=== PATIENT | male | born 1975 | race Caucasian/White ===

== ENCOUNTER 2016-12-26 10:34 | Emergency (ER) | payer MEDICAID ==
[2016-12-26 10:42] VITALS: RESP 18; O2SAT 94
--- NOTE | 2016-12-26 11:32 | EDPHY ---
H & P Stated Complaint: sob/burning with breathing/?fevers body aches/wants psych eval Time Seen by Provider: 12/26/16 11:00 HPI/ROS: CHIEF COMPLAINT: Fatigue, myalgias, "feeling hopeless" HISTORY OF PRESENT ILLNESS: 41-year-old male currently undergoing ongoing medical gender transition, medical history significant for PTSD, drove to the ER complaining of 4 days of diffuse myalgias, fatigue, dyspnea, left-sided chest pain. He also awoke this morning "feeling hopeless", however specifically no suicidal or homicidal ideation. He denies: Syncope, near syncope, back pain , nausea, vomiting PRIMARY CARE PROVIDER: Dr. Nikki Garcia REVIEW OF SYSTEMS: A ten point review of systems was performed and is negative with the exception of the items mentioned in the HPI PAST MEDICAL & SURGICAL HISTORY: Appendectomy. Currently undergoing hormonal gender transition. Hiatal hernia. Migraine. Chronic back pain. Mesenteric adenoma. Brain lesion. SOCIAL HISTORY: Daily smoker. No drug use. No alcohol. FAMILY HISTORY: No family history of premature coronary artery disease PHYSICAL EXAM (Prior to examination, patient consented to physical exam, hands were washed and my usual and customary physical exam procedures followed) 1) GENERAL: Well-developed, well-nourished, alert and oriented. Appears to be in no acute distress. 2) HEAD: Normocephalic, atraumatic 3) HEENT: Pupils equal, round, reactive to light bilaterally. Sclera anicteric. 4) NECK: Full range of motion, no meningeal signs. Full range of motion. 5) LUNGS: Clear auscultation bilaterally, no wheezes, no rhonchi, no retractions. 6) HEART: Regular rate and rhythm, no murmur, no heave, no gallop. 7) ABDOMEN: No guarding, no rebound, no focal tenderness, negative McBurney's, negative Melvin's, negative Rovsing's, negative peritoneal sign, 8) MUSCULOSKELETAL: Right forearm lidocaine patch in place. Compartments are soft. He is neurovascular intact distally with normal color normal temperature brisk pulses and capillary refill and no pain with palpation. Moving all extremities, no focal areas of tenderness, no obvious trauma. No peripheral edema or discoloration. 9) BACK: No CVA tenderness, no midline vertebral tenderness, no fluctuance, no step-off, no obvious trauma, no visual or palpable abnormality. 10) SKIN: No rash, no petechiae. 11) Psychiatric: Patient is oriented X 3, there is no agitation. He does appear intermittently tearful will cry intermittently. DIFFERENTIAL DIAGNOSIS: In no particular order, including but not limited to myocardial ischemia, pulmonary embolus, chest wall pain, pleural inflammation and pulmonary infectious causes. - Personal History Current Tetanus/Diphtheria Vaccine: Yes Tetanus Vaccine Date: 2007 - Medical/Surgical History Hx Asthma: No Hx Chronic Respiratory Disease: No Hx Diabetes: No Hx Cardiac Disease: No Hx Renal Disease: No Hx Cirrhosis: No Hx Alcoholism: No Hx HIV/AIDS: No Hx Splenectomy or Spleen Trauma: No Other PMH: appy, hiatal hernia, Migraines, chronic back pain, brain lesion Rt lobe, mesenteric adenoma - Social History Smoking Status: Heavy smoker Constitutional: Initial Vital Signs Temperature (C) 36.6 C 12/26/16 10:40 Heart Rate 93 12/26/16 10:40 Respiratory Rate 18 12/26/16 10:40 Blood Pressure 138/109 H 12/26/16 10:40 O2 Sat (%) 94 12/26/16 10:40 O2 Delivery Mode Room Air Allergies/Adverse Reactions: Gadolinium-Containing Contrast Medi Allergy (Intermediate, Verified 12/26/16 10: 39) n/v,syncope amitriptyline Allergy (Verified 12/26/16 10:39) Other-Enter Comments artichoke [Artichoke] Allergy (Verified 12/26/16 10:39) asparagus Allergy (Verified 12/26/16 10:39) Home Medications: Medication Instructions Recorded Estradiol 12/26/16 Spironolactone 12/26/16 Medical Decision Making - Diagnostics Imaging Results: Imaging Impressions Chest X-Ray 12/26/16 11:28 Impression: No acute findings in the chest. Images reviewed by myself ED Course/Re-evaluation: 1:17 p.m.: This patient has been re-evaluated with serial exams. At this time he is sleeping, easily woken. Discussed his laboratory studies. He has multiple complaints and we discussed his diagnostic studies. He is complaining of diffuse myalgias. He has a negative influenza test and negative CK. Doubt rhabdomyolysis. Doubt influenza . He also complained of dyspnea and intermittent chest pain for the past 4 days with a negative D-dimer, negative troponin, normal EKG, normal chest x-ray. I think that pulmonary embolus, AK, aortic dissection, pneumothorax, less than likely in this patient. He also has no evidence of pulmonary infectious etiology on chest x-ray is maintain normal saturations, not tachycardic, not tachypneic. He was also concerned about possible meningitis. He has excellent range of motion, negative meningismus. I think that meningitis is less than likely in this patient. He also stated that he was "feeling hopeless" and specifically inquired initially and on repeat examination when he was experiencing suicidal or homicidal ideation and he adamantly denies this. I do not think that he meets criteria for an M1 hold. I offered to send [facility] which he is agreeable with. He has a vehicle and he feels comfortable driving there. At this time I do not think that hospitalization or further diagnostic studies indicated. He would like to be discharged. - Data Points Laboratory Results: Laboratory Results 12/26/16 11:30 12/26/16 11:30 12/26/16 12/26/16 12/26/16 11:30 11:30 11:30 WBC RBC Hgb Hct MCV MCH MCHC RDW Plt Count MPV Neut % (Auto) Lymph % (Auto) Kendall % (Auto) Eos % (Auto) Baso % (Auto) Nucleat RBC Rel Count Absolute Neuts (auto) Absolute Lymphs (auto) Absolute Monos (auto) Absolute Eos (auto) Absolute Basos (auto) Absolute Nucleated RBC Immature Gran % Immature Gran # D-Dimer Sodium Potassium Chloride Carbon Dioxide Anion Gap BUN Creatinine Estimated GFR Glucose Calcium Creatine Kinase Troponin I Urine Color YELLOW Urine Appearance CLEAR Urine pH 5.0 (5.0-7.5) Ur Specific Roberts 1.005 (1.002-1.030) Urine Protein NEGATIVE (NEGATIVE) Urine Ketones NEGATIVE (NEGATIVE) Urine Blood 1+ H (NEGATIVE) Urine Nitrate NEGATIVE (NEGATIVE) Urine Bilirubin NEGATIVE (NEGATIVE) Urine Urobilinogen NEGATIVE EU EU (0.2-1.0) Ur Leukocyte Esterase NEGATIVE (NEGATIVE) Urine RBC 1-3 /hpf /hpf (0-3) Urine WBC 1-3 /hpf /hpf (0-3) Ur Epithelial Cells TRACE /lpf /lpf (NONE-1+) Urine Mucus TRACE /lpf /lpf (NONE-1+) Urine Glucose NEGATIVE (NEGATIVE) Monoscreen NEGATIVE (NEGATIVE) Influenza Typ A,B (DFA) NEGATIVE FOR FLU (NEGATIVE) 12/26/16 12/26/16 12/26/16 11:30 11:30 11:30 WBC 4.68 10^3/uL 10^3/uL (3.80-9.50) RBC 5.20 10^6/uL 10^6/uL (4.40-6.38) Hgb 15.8 g/dL g/dL (13.7-17.5) Hct 44.7 % % (40.0-51.0) MCV 86.0 fL fL (81.5-99.8) MCH 30.4 pg pg (27.9-34.1) MCHC 35.3 g/dL g/dL (32.4-36.7) RDW 12.5 % % (11.5-15.2) Plt Count 181 10^3/uL 10^3/uL (150-400) MPV 10.8 fL fL (8.7-11.7) Neut % (Auto) 63.5 % % (39.3-74.2) Lymph % (Auto) 20.5 % % (15.0-45.0) Kendall % (Auto) 15.0 % H % (4.5-13.0) Eos % (Auto) 0.2 % L % (0.6-7.6) Baso % (Auto) 0.4 % % (0.3-1.7) Nucleat RBC Rel Count 0.0 % % (0.0-0.2) Absolute Neuts (auto) 2.97 10^3/uL 10^3/uL (1.70-6.50) Absolute Lymphs (auto) 0.96 10^3/uL L 10^3/uL (1.00-3.00) Absolute Monos (auto) 0.70 10^3/uL 10^3/uL (0.30-0.80) Absolute Eos (auto) 0.01 10^3/uL L 10^3/uL (0.03-0.40) Absolute Basos (auto) 0.02 10^3/uL 10^3/uL (0.02-0.10) Absolute Nucleated RBC 0.00 10^3/uL 10^3/uL (0-0.01) Immature Gran % 0.4 % % (0.0-1.1) Immature Gran # 0.02 10^3/uL 10^3/uL (0.00-0.10) D-Dimer 0.38 ug/mLFEU ug/mLFEU (0.00-0.50) Sodium 135 mEq/L mEq/L (134-144) Potassium 4.5 mEq/L mEq/L (3.5-5.2) Chloride 102 mEq/L mEq/L (97-110) Carbon Dioxide 25 mEq/l mEq/l (22-31) Anion Gap 8 mEq/L mEq/L (8-16) BUN 15 mg/dL mg/dL (7-23) Creatinine 0.9 mg/dL mg/dL (0.7-1.3) Estimated GFR > 60 Glucose 94 mg/dL mg/dL (70-100) Calcium 9.0 mg/dL mg/dL (8.5-10.4) Creatine Kinase 91 IU/L IU/L (0-224) Troponin I < 0.012 ng/mL ng/mL (0-0.034) Urine Color Urine Appearance Urine pH Ur Specific Roberts Urine Protein Urine Ketones Urine Blood Urine Nitrate Urine Bilirubin Urine Urobilinogen Ur Leukocyte Esterase Urine RBC Urine WBC Ur Epithelial Cells Urine Mucus Urine Glucose Monoscreen Influenza Typ A,B (DFA) Medications Given: Discontinued Medications Ibuprofen (Motrin) 800 mg PO EDNOW ONE Stop: 12/26/16 12:00 Last Admin: 12/26/16 12:06 Dose: 800 mg Departure - Departure Disposition: Home, Routine, Self-Care Clinical Impression: Feeling hopeless Condition: Good Instructions: Depression (ED) Additional Instructions: Return to the ER if you develop new or worsening symptoms, if you develop fever , if you develop thoughts of hurting your self or hurting anybody else or any other symptoms that concern you Referrals: [facility] [Outside] - 12/26/16 1:30 pm
[2016-12-26 11:35] LABS: % IMMATURE GRANULYOCYTES 0.4 % (0.0-1.1); ABSOLUTE IMMATURE GRANULOCYTES 0.02 10^3/uL (0.00-0.10); ADD DIFF? NO; ADD MORPH? NO; ADD SCAN? NO; ATYPICAL LYMPHOCYTE FLAG 0 (0-99); FRAGMENT RBC FLAG 0 (0-99); HEMATOCRIT 44.7 % (40.0-51.0); HEMOGLOBIN 15.8 g/dL (13.7-17.5); LEFT SHIFT FLG 0 (0-99); LIPEMIA HEMOLYSIS FLAG 90 (0-99); MEAN CELL HEMOGLOBIN 30.4 pg (27.9-34.1); MEAN CELL HEMOGLOBIN CONCENTR. 35.3 g/dL (32.4-36.7); MEAN PLATELET VOLUME 10.8 fL (8.7-11.7); PLATELET CLUMPS FLAG 0 (0-99); PLATELET COUNT 181 10^3/uL (150-400); RED CELL DISTRIBUTION WIDTH 12.5 % (11.5-15.2)
--- NOTE | 2016-12-26 11:41 | CPEKG ---
Heart Rate: 91 RR Interval: 659 P-R Interval: 176 QRSD Interval: 86 QT Interval: 340 QTC Interval: 419 P Eugene: 61 QRS Eugene: 11 T Wave Eugene: 37 EKG Severity - NORMAL ECG - EKG Impression: SINUS RHYTHM Electronically Signed By: Ashely Sexton 26-Dec-2016 21:17:08
[2016-12-26 11:42] LABS: COLOR YELLOW; LEUKOCYTE ESTERASE,URINE NEGATIVE (NEGATIVE); NITRITE,URINE NEGATIVE (NEGATIVE)
[2016-12-26 11:43] LABS: MUCUS TRACE /lpf (NONE-1+)
[2016-12-26 11:55] LABS: ANION GAP 8 mEq/L (8-16); CARBON DIOXIDE 25 mEq/l (22-31); CHLORIDE 102 mEq/L (97-110); CREATININE 0.9 mg/dL (0.7-1.3); GLOMERULAR FILTRATION RATE > 60; GLUCOSE 94 mg/dL (70-100); POTASSIUM 4.5 mEq/L (3.5-5.2); SODIUM 135 mEq/L (134-144)
[2016-12-26] MEDS ORDERED: IBUPROFEN 200 MG TAB PO ONE (11:59)
[2016-12-26 12:07] LABS: TROPONIN I < 0.012 ng/mL (0-0.034)
[2016-12-26 13:38] VITALS: BP 103/75; PULSE 90; TEMP 98.6
== END 2016-12-26 13:37 | disposition home or self-care (01) ==
DX: R45.89 Other symptoms and signs involving emotional state (principal); F17.200 Nicotine dependence, unspecified, uncomplicated

== ENCOUNTER 2018-05-23 10:21 | Emergency (ER) | payer MEDICAID ==
--- NOTE | 2018-05-23 10:36 | EDPHY ---
H & P Time Seen by Provider: 05/23/18 10:35 - Personal History Tetanus Vaccine Date: 2007 - Medical/Surgical History Hx Asthma: No Hx Chronic Respiratory Disease: No Hx Diabetes: No Hx Cardiac Disease: No Hx Renal Disease: No Hx Cirrhosis: No Hx Alcoholism: No Hx HIV/AIDS: No Hx Splenectomy or Spleen Trauma: No Other PMH: appy, hiatal hernia, Migraines, chronic back pain, brain lesion Rt lobe, mesenteric adenoma - Social History Smoking Status: Heavy smoker Constitutional: Initial Vital Signs Temperature (C) 36.7 C 05/23/18 10:37 Heart Rate 68 05/23/18 10:37 Respiratory Rate 16 05/23/18 10:37 Blood Pressure 144/87 H 05/23/18 10:37 O2 Sat (%) 98 05/23/18 10:37 O2 Delivery Mode Room Air Allergies/Adverse Reactions: Gadolinium-Containing Contrast Medi Allergy (Intermediate, Verified 12/26/16 10: 39) n/v,syncope amitriptyline Allergy (Verified 12/26/16 10:39) Other-Enter Comments artichoke [Artichoke] Allergy (Verified 12/26/16 10:39) asparagus Allergy (Verified 12/26/16 10:39) Home Medications: Medication Instructions Recorded Estradiol 12/26/16 Spironolactone 12/26/16 Gabapentin 05/23/18 Medical Decision Making ED Course/Re-evaluation: CHIEF COMPLAINT: Medication reaction. HISTORY OF PRESENT ILLNESS: This patient is a pleasant 42 y/o male complaining of pharyngeal swelling after taking gabapentin. He is particularly concerned regarding swelling of his uvula and states it felt as if it was going down the back of his throat. He drank hot coffee and gargled with alum which helped to relieve this somewhat. He called a nurse line and staff recommended he present to the emergency department. He feels his uvula continues to be swollen. He denies urticaria, shortness of breath. He endorses history of unusual medication reactions in the past. No chest pain, fever, abdominal pain, vomiting, diarrhea, or other associated symptoms. REVIEW OF SYSTEMS: A comprehensive 10 system review of systems is otherwise negative aside from elements mentioned in the history of present illness and medical decision making. PHYSICAL EXAM: HR, BP, O2 Sat, RR. Temp noted General Appearance: Alert, well hydrated, appropriate, and non-toxic appearing. Head: Atraumatic without scalp tenderness or obvious injury Eyes: Pupils equal, round, reactive to light and accommodation, EOMI, no trauma , no injection. Ears: Clear bilaterally, no perforation, normal landmarks Nose: Atraumatic, no rhinorrhea, clear. Throat: Mild uvular swelling. There is no erythema or exudates, no lesions, normal tonsils, mucus membranes moist. Neck: Supple, nontender, no lymphadenopathy. Respiratory: No retractions, no distress, no wheezes, and no accessory muscle use. Lungs are clear to auscultation bilaterally. Cardiovascular: Regular rate and rhythm, no murmurs, rubs, or gallops. Bilateral carotid, radial, dorsalis pedis, and posterior tibial pulses intact. Good capillary refill all extremities. Gastrointestinal: Abdomen is soft, nontender, non-distended, no masses, no rebound, no guarding, no peritoneal signs. Musculoskeletal: Normal active ROM of all extremities, atraumatic. Neurological: Alert, appropriate, and interactive. Nonfocal exam. Skin: No rashes, good turgor, no nodules on palpation. Past medical history: Autism spectrum disorder. Migraines. Right lobe brain lesion. Mesenteric adenoma. Past surgical history: Noncontributory Family history: Noncontributory Social history: Single. Lives in [place]. Does not abuse tobacco, drugs, or alcohol. DIFFERENTIAL DIAGNOSIS: The differential diagnosis included but was not limited to angioedema, anaphylaxis, anaphylactoid reaction, urticarial reaction, and other infectious causes for skin rash. MEDICAL DECISION MAKIN42 y/o male presents following possible medication reaction to gabapentin. He is well-appearing currently, no urticaria, no difficulty breathing. Mild swelling of the uvula is present on exam. Plan to administer 10mg PO Decadron for symptom relief. Plan to discharge home in good condition. Follow up and return precautions discussed. He is comfortable with this plan. - Data Points Medications Given: Discontinued Medications Dexamethasone (Decadron Injection) 10 mg PO EDNOW ONE Stop: 05/23/18 10:44 Last Admin: 05/23/18 10:49 Dose: 10 mg Departure - Departure Disposition: Home, Routine, Self-Care Clinical Impression: Medication reaction Qualifiers: Encounter type: initial encounter Qualified Code(s): T50.905A - Adverse effect of unspecified drugs, medicaments and biological substances, initial encounter Condition: Good Instructions: General Allergic Reaction (ED) Additional Instructions: Please stop taking gabapentin. Follow up with your primary care provider. Return to the Emergency Department for shortness of breath, difficulty swallowing, difficulty breathing, worsening of rash, fever or other worsening of condition. Referrals: Nikki Garcia MD [Primary Care Provider] - As per Instructions Report Scribed for: Bruno Haile Report Scribed by: Brianna Lay Date of Report: 05/23/18 Time of Report: 10:48
[2018-05-23 10:41] VITALS: BP 144/87
[2018-05-23] MEDS ORDERED: DEXAMETHASONE 10 MG/ML VIAL PO ONE (10:43)
== END 2018-05-23 10:55 | disposition home or self-care (01) ==
DX: R22.1 Localized swelling, mass and lump, neck (principal); T43.8X5A Adverse effect of other psychotropic drugs, initial encounter; F17.200 Nicotine dependence, unspecified, uncomplicated
CPT/HCPCS: J1100

== ENCOUNTER 2018-08-22 15:09 | Emergency (ER) | payer MEDICAID ==
--- NOTE | 2018-08-22 15:32 | EDPHY ---
H & P Time Seen by Provider: 08/22/18 15:31 HPI/ROS: CHIEF COMPLAINT: Shortness of breath HISTORY OF PRESENT ILLNESS: History of childhood asthma, developed a fever about a week ago and then since has had cough and shortness of breath which is worse lying down or with exertion. Worse going up stairs[place] Not associated with hemoptysis or leg swelling or chest pain. Symptoms moderate. When he coughs it does get bad enough that he feels like he is going to throw up but he actually has not. REVIEW OF SYSTEMS: Eye: no change in vision ENT: no sore throat or earache Cardiac: no chest pain or syncope Pulmonary: HPI Abdomen: no vomiting, diarrhea, abdominal pain Musculoskeletal: Chronic back pain unchanged, no leg swelling Skin: no rash Neuro: no headache Constitutional: HPI : no urinary symptoms A comprehensive 10 point review of systems is otherwise negative aside from elements mentioned in the history of present illness. PAST MEDICAL HISTORY: Includes asthma, appendectomy, hiatal hernia, migraines, chronic back pain, right brain tumor, Autism Family history: Unknown, adopted Social history: Tobacco smoker, no foreign travel. No recent travel or immobilization. General Appearance: Alert and conversant, cooperative. ENT, Mouth: Normal mucous membranes. Normal pharynx. Respiratory: Bilateral expiratory wheezes, no focal lung sounds, no rales or rhonchi. Cardiovascular: Regular rate and rhythm. Gastrointestinal: Abdomen is soft and non tender. Neurological: Alert, face symmetric, normal motor and sensory in extremities. Skin: Warm and dry, no rashes. Musculoskeletal: No peripheral edema. No calf tenderness. Psychiatric: Not agitated. Emergency Department course/MDM: History of asthma, presents with likely URI and significant bronchospasm. Albuterol and Atrovent nebulizer, prednisone discussed and consented. Chest x- ray with history of fever to evaluate for possibility of pneumonia. Flu status unknown, but at least a week of symptoms. Not hypoxemic, not febrile. I think pulmonary embolism, ACS or CHF, pneumonia, unlikely. 1630: Feels better, less wheezing, speaking full sentences. Stable for discharge, patient in agreement. Smoking Status: Heavy smoker Constitutional: Initial Vital Signs Temperature (C) 36.5 C 08/22/18 15:13 Heart Rate 84 08/22/18 15:13 Respiratory Rate 18 08/22/18 15:13 Blood Pressure 133/87 H 08/22/18 15:13 O2 Sat (%) 96 08/22/18 15:13 O2 Delivery Mode Room Air Allergies/Adverse Reactions: Gadolinium-Containing Contrast Medi Allergy (Intermediate, Verified 08/22/18 15: 20) n/v,syncope amitriptyline Allergy (Verified 08/22/18 15:20) Other-Enter Comments artichoke [Artichoke] Allergy (Verified 08/22/18 15:20) asparagus Allergy (Verified 08/22/18 15:20) cyclobenzaprine [From Flexeril] Allergy (Verified 08/22/18 15:20) Home Medications: Medication Instructions Recorded Estradiol 12/26/16 Spironolactone 12/26/16 Albuterol 5 mg/ml INH 08/22/18 Lexapro 08/22/18 predniSONE [prednisone 20mg (RX)] 40 mg PO DAILY 4 Days tab 08/22/18 Medical Decision Making - Diagnostics Imaging Results: Imaging Impressions Chest X-Ray 08/22/18 15:44 Impression: No acute cardiopulmonary process. Nodular density at the right lung base appears stable and is probably a nipple shadow. Imaging: I viewed and interpreted images myself - Data Points Medications Given: Discontinued Medications Albuterol (Proventil Neb) 3 ml IH EDNOW ONE Stop: 08/22/18 15:45 Last Admin: 08/22/18 16:09 Dose: 3 ml Albuterol/Ipratropium (Duoneb) 3 ml IH EDNOW ONE Stop: 08/22/18 15:45 Last Admin: 08/22/18 16:09 Dose: 3 ml Prednisone (Prednisone) 60 mg PO EDNOW ONE Stop: 08/22/18 15:45 Last Admin: 08/22/18 16:09 Dose: 60 mg Departure - Departure Disposition: Home, Routine, Self-Care Clinical Impression: Bronchospasm, acute Condition: Good Instructions: Bronchospasm (ED) Additional Instructions: Cut back on cigarette smoking. User albuterol inhaler 2 puffs every 6 hr for the next week. Follow-up with your doctor next week if not improving. Referrals: NONE *PRIMARY CARE P,. [Primary Care Provider] - As per Instructions (Dr. Garcia your PCP in [place]) Prescriptions: predniSONE [prednisone 20mg (RX)] 40 mg PO DAILY 4 Days tab
[2018-08-22] MEDS ORDERED: predniSONE 20 MG TAB PO ONE (15:44)
[2018-08-22] MEDS ORDERED: ALBUTEROL 3 ML DEYVIAL IH ONE (15:44)
[2018-08-22] MEDS ORDERED: IPRATROPIUM/ALBUTEROL 3 ML DEYVIAL IH ONE (15:44)
[2018-08-22 16:38] VITALS: BP 129/88
== END 2018-08-22 16:38 | disposition home or self-care (01) ==
DX: J98.01 Acute bronchospasm (principal); G43.909 Migraine, unspecified, not intractable, without status migrainosus; M54.9 Dorsalgia, unspecified; G89.29 Other chronic pain; Z87.891 Personal history of nicotine dependence
CPT/HCPCS: J7512; J7613

== ENCOUNTER 2019-01-20 20:38 | Emergency (ER) | payer MEDICAID ==
[2019-01-20] MEDS ORDERED: NS 1,000 ML IV ONE (21:41)
[2019-01-20 21:47] LABS: PLATELET COUNT 239 10^3/uL (150-400)
--- NOTE | 2019-01-20 22:08 | CPEKG ---
Test Reason : OPEN Blood Pressure : / mmHG Vent. Rate : 097 BPM Atrial Rate : 097 BPM P-R Int : 164 ms QRS Dur : 093 ms QT Int : 363 ms P-R-T Axes : 053 023 058 degrees QTc Int : 461 ms Sinus rhythm Confirmed by Pacheco Larsen ([id number]) on 01/20/2019 10:08:20 PM Referred By: PHYSICIAN ED Confirmed By:Pacheco Larsen
[2019-01-20] MEDS ORDERED: KETOROLAC 30 MG/1 ML SDV IVP ONE (22:29)
--- NOTE | 2019-01-20 22:44 | EDPHY ---
H & P Time Seen by Provider: 01/20/19 21:44 HPI/ROS: HPI Fainted, fall to ground, lower back pain. 43-year-old male by ambulance. This patient had been sitting outside on a hot deck at his house. He stood up abruptly became lightheaded lost consciousness briefly and fell to the ground landing on his right side. There is no associated headache, no palpitations, no chest pain, no shortness of breath. He denies any loss of sensation or weakness in his extremities. He has a history of chronic back pain pain. He reports that he thinks that when he fell and landed he twisted his lower back. He complains of pain to the lumbar area. He is currently laying on his back with his legs elevated on the gurney. He is in a cervical collar. ROS: Constitutional: No fever, no chills. No weakness. Eyes: No discharge. No changes in vision. ENT: No sore throat. No nasal congestion or rhinorrhea. Respiratory: No cough. No shortness of breath. Cardiac: No chest pain, no palpitations. Gastrointestinal: No abdominal pain, no vomiting, no diarrhea. Genitourinary: No hematuria. No dysuria or increased frequency with urination. Musculoskeletal: As above. No neck pain. No myalgias or arthralgias. Skin: No rashes. Neurological: No headache. No new focal weakness or altered sensation. Past medical history: Asthma, appendectomy, hiatal hernia, brain lesion right frontal lobe, mesenteric adenoma, sleep apnea, chronic lower back pain, neck pain with history of C5-C6 radiculopathy, autism. Social history: Nonsmoker. Drinks alcohol socially. Here with his sister. Physical Exam: General Appearance: Alert, no distress. This patient is responding to questions appropriately and in full sentences. This patient appears well- hydrated and well-nourished. Head: Normocephalic atraumatic. Face: Facial bones are stable on palpation. Eyes: Pupils equal and round and reactive to light, no pallor or injection. No lid erythema or edema. ENT, Mouth: Mucous membranes moist. Dentition is intact. No malocclusion of the jaw. No tongue lacerations or abrasions. Pharynx is clear. The bilateral nasal canals are clear. No septal hematoma. Respiratory: There are no retractions, lungs are clear to auscultation with good air movement bilaterally. Chest wall is stable to AP and lateral palpation. Cardiovascular: Regular rate and rhythm. No murmur. Gastrointestinal: Abdomen is soft and nontender, no masses, bowel sounds normal. Neurological: Motor sensory function is intact. Cranial nerves are normal. Cerebellar function intact. Skin: Warm and dry, no rashes. No lacerations, abrasions or contusions. Musculoskeletal: Neck is supple and nontender. The trachea is midline. No midline cervical, tenderness on palpation. No flank tenderness on palpation. Back exam, no significant midline or paraspinal thoracic lumbar sacral tenderness on palpation. He does have tenderness on palpation over the right SI joint area. There is some vague muscle tightness to this area as well in comparison to the left side. He has a negative same side and cross-side straight leg raise test. He is neurologically intact in all myotomes in dermatomes of the bilateral lower extremities. Extremities are symmetrical, full range of motion. All joints in the bilateral upper and bilateral lower extremities range without pain or impingement. No tenderness on palpation of the long bones in the bilateral upper and bilateral lower extremities. Psychiatric: No agitation. No depression. Database: EKG: EKG time is 9:03 p.m.; EKG shows a narrow complex normal sinus rhythm with a ventricular rate of 97. The SC, QRS, QT intervals are within normal limits. There are no ST-T wave changes indicative of ischemic or injury pattern. No evidence of right heart strain. No evidence of Brugada syndrome, WPW, hypertrophic cardiomyopathy. Interpreted by me. Imaging: Lumbar spine x-ray series: No evidence of acute fracture, subluxation, dislocation. Interpreted by me. I have also reviewed the report by staff radiologist Dr. Mehran Denny. Procedures: Emergency department course: Triage vital signs reviewed. He was mildly tachycardic. Vital signs are otherwise normal. He is afebrile. IV placed. He was started on IV normal saline with 1 L to be given over the next hour. EKG obtained and reviewed by myself. He will be sent for LS spine x-rays. Cervical collar was clinically cleared at 10:30 p.m.. The patient was given 30 mg of IV Toradol after verification of a normal creatinine. 11:30 p.m., the patient was re-evaluated, he is feeling better at this time. I discussed the results of his blood work, EKG and x-rays with him. He feels comfortable at this time going home. We will get him up and ambulate him. Assuming he can ambulate on his own he will be discharged home with family. I will send him home with a take-home pack of Flexeril. I discussed follow-up with his primary care physician on Monday or Monday. Return to emergency department precautions have been reviewed with him. All of his questions were answered. He was discharged from the emergency department in good condition with family. Differential Diagnosis: The differential diagnosis on this patient includes but is not limited to lumbar sacral strain, sacroiliac strain. Acute fracture, dislocation, subluxation of the LS spine, epidural compression syndrome unlikely. This represents a partial list of diagnoses considered. These considerations are based on history, physical exam, past history, reassessment and diagnostic testing. Smoking Status: Heavy smoker Constitutional: Initial Vital Signs Temperature (C) 36.8 C 01/20/19 20:44 Heart Rate 101 H 01/20/19 20:44 Respiratory Rate 16 01/20/19 20:44 Blood Pressure 103/88 H 01/20/19 20:44 O2 Sat (%) 95 01/20/19 20:44 O2 Delivery Mode Room Air Allergies/Adverse Reactions: Gadolinium-Containing Contrast Medi Allergy (Intermediate, Verified 08/22/18 15: 20) n/v,syncope amitriptyline Allergy (Verified 08/22/18 15:20) Other-Enter Comments artichoke [Artichoke] Allergy (Verified 08/22/18 15:20) asparagus Allergy (Verified 08/22/18 15:20) cyclobenzaprine [From Flexeril] Allergy (Verified 08/22/18 15:20) Home Medications: Medication Instructions Recorded Estradiol 12/26/16 Spironolactone 12/26/16 Albuterol 5 mg/ml INH 08/22/18 Lexapro 08/22/18 predniSONE [prednisone 20mg (RX)] 40 mg PO DAILY 4 Days tab 08/22/18 Medical Decision Making - Diagnostics Imaging Results: Imaging Impressions Lumbar Spine X-Ray 01/20/19 22:29 Impression: 1. Mild diffuse disk space narrowing with marginal osteophytes throughout the lumbar spine similar to prior imaging. 2. Mild anterior wedging of L1 stable in appearance. This may be congenital. - Data Points Laboratory Results: Laboratory Results 01/20/19 21:35 01/20/19 21:35 01/20/19 01/20/19 21:35 21:35 WBC 14.42 10^3/uL H 10^3/uL (3.80-9.50) RBC 5.27 10^6/uL 10^6/uL (4.40-6.38) Hgb 15.4 g/dL g/dL (13.7-17.5) Hct 44.4 % % (40.0-51.0) MCV 84.3 fL fL (81.5-99.8) MCH 29.2 pg pg (27.9-34.1) MCHC 34.7 g/dL g/dL (32.4-36.7) RDW 12.8 % % (11.5-15.2) Plt Count 239 10^3/uL 10^3/uL (150-400) MPV 10.8 fL fL (8.7-11.7) Neut % (Auto) 80.1 % H % (39.3-74.2) Lymph % (Auto) 11.9 % L % (15.0-45.0) Tyler % (Auto) 6.3 % % (4.5-13.0) Eos % (Auto) 0.7 % % (0.6-7.6) Baso % (Auto) 0.3 % % (0.3-1.7) Nucleat RBC Rel Count 0.0 % % (0.0-0.2) Absolute Neuts (auto) 11.55 10^3/uL H 10^3/uL (1.70-6.50) Absolute Lymphs (auto) 1.71 10^3/uL 10^3/uL (1.00-3.00) Absolute Monos (auto) 0.91 10^3/uL H 10^3/uL (0.30-0.80) Absolute Eos (auto) 0.10 10^3/uL 10^3/uL (0.03-0.40) Absolute Basos (auto) 0.05 10^3/uL 10^3/uL (0.02-0.10) Absolute Nucleated RBC 0.00 10^3/uL 10^3/uL (0-0.01) Immature Gran % 0.7 % % (0.0-1.1) Immature Gran # 0.10 10^3/uL 10^3/uL (0.00-0.10) Sodium 136 mEq/L mEq/L (135-145) Potassium 4.3 mEq/L mEq/L (3.5-5.2) Chloride 101 mEq/L mEq/L (97-110) Carbon Dioxide 22 mEq/l mEq/l (22-31) Anion Gap 13 mEq/L mEq/L (6-14) BUN 17 mg/dL mg/dL (7-23) Creatinine 1.0 mg/dL mg/dL (0.7-1.3) Estimated GFR > 60 Glucose 130 mg/dL H mg/dL (70-100) Calcium 9.4 mg/dL mg/dL (8.5-10.4) Medications Given: Discontinued Medications Sodium Chloride (Ns) 1,000 mls @ 0 mls/hr IV EDNOW ONE; Wide Open PRN Reason: Protocol Stop: 01/20/19 21:42 Last Admin: 01/20/19 21:50 Dose: 1,000 mls Ketorolac Tromethamine (Toradol) 30 mg IVP EDNOW ONE Stop: 01/20/19 22:30 Last Admin: 01/20/19 22:32 Dose: 30 mg Departure - Departure Disposition: Home, Routine, Self-Care Clinical Impression: Syncope, Lower back pain Condition: Good Instructions: Low Back Strain (ED), Syncope (ED) Additional Instructions: Read and follow provided instructions. Follow-up with your primary care physician in 1-2 days for re-evaluation. Take Flexeril/cyclobenzaprine as prescribed. You can take 1, 10 mg tablet at night before bed to help you sleep. Do not drive while on this medication. Return to the emergency department for worsening pain, loss of sensation or weakness in your lower extremities, bowel or bladder incontinence or other serious concerns. Referrals: Unknown,Unknown [Primary Care Provider] - As per Instructions
[2019-01-20] MEDS ORDERED: CYCLOBENZAPRINE 10MG PREPACK#3 BTL TAKEHOME ONE (23:38)
[2019-01-20 23:47] VITALS: BP 115/82
== END 2019-01-20 23:45 | disposition home or self-care (01) ==
LOC: EDUNIT#
DX: R55 Syncope and collapse (principal); M54.5 Low back pain; G89.29 Other chronic pain; E86.9 Volume depletion, unspecified
CPT/HCPCS: 96374; J1885